=== PATIENT | female | born 1960 | race Caucasian/White ===

== ENCOUNTER 2020-11-18 15:51 | Emergency (ER) | payer OTHER, SELFPAY ==
[2020-11-18 16:07] VITALS: BP 130/60; PULSE 104; RESP 20; TEMP 36.9; O2SAT 98
--- NOTE | 2020-11-18 16:34 | ED.FEMALEGU ---
HPI - Female Genitourinary General Chief complaint: Urogenital-Female Stated complaint: kidney infection Time Seen by Provider: 11/18/20 16:15 Source: patient and RN notes reviewed Mode of arrival: ambulatory Limitations: no limitations History of Present Illness HPI Narrative: 60 year old female presents to [facility] care with one week duration of cloudy urine and 3 day history of burning with urination and left flank pain. Patient states that she has had intermittent low grade fevers for the past day and she also has had some feelings of nausea. Patient states that she has had previous UTI's but it has been several years since she has experienced any bladder infections. She states that she had to have a surgical procedure when she was young woman where she had to have ureters repositioned on the bladder. Patient states that she has increased her oral fluids of water.Patient also states numerous allergies to antibiotics MD elicited complaint: dysuria, pelvic pain and flank pain (left) Pertinent past history: other (previous UTI but not recurrent) Onset (ago): week(s) (1) Location of symptoms: perineum (pressure), suprapubic and flank (left) Severity: moderate Female Urogenital Radiation: L Flank Quality of pain: dull and burning Vaginal discharge: none Vaginal bleeding: none Urinary symptoms: Dysuria, Frequency and Flank Pain (left) Exacerbating factors: urination Relieving factors: none Associated symptoms: abdominal pain (suprapubic) and fever (highest 100.5) Treatment prior to arrival: other (increased oral fluids) Patient : No Possible : postmenopausal Related Data Home Medications Medication Instructions Recorded Confirmed celecoxib 1 mg PO BID 11/18/20 11/18/20 levothyroxine [Synthroid] 1 mcg PO DAILY 11/18/20 11/18/20 Allergies Allergy/AdvReac Type Severity Reaction Status Date / Time Cephalosporins Allergy Mild Diarrhea Verified 11/18/20 16:06 egg Allergy Mild Verified 11/18/20 16:06 levofloxacin Allergy Mild Rash Verified 11/18/20 16:06 Penicillins Allergy Mild Unknown Verified 11/18/20 16:06 Sulfa (Sulfonamide Allergy Mild Rash Verified 11/18/20 16:06 Antibiotics) aspirin AdvReac Mild Nausea Verified 11/18/20 16:06 Review of Systems Review of Systems: Narrative: CONSTITUTIONAL: Reports low grade fever,no chills, or sweats. EYES: Denies visual changes, redness, or discharge. ENT: Denies rhinorrhea, congestion, sore throat, or otalgia. CARDIOVASCULAR: Denies chest pain, palpitations, or edema. RESPIRATORY: Denies cough or dyspnea. GASTROINTESTINAL: suprapubic tenderness and pressure ,positive intermittent nausea,no vomiting, or diarrhea. GENITOURINARY: Positive dysuria or hematuria,pressure with urination and burning SKIN: Denies rash or itching. MUSCULOSKELETAL: Positive for left flank back pain,no joint pain, or myalgia. NEUROLOGIC: Denies headache, numbness, or weakness. PSYCHIATRIC: Denies anxiety or depression. 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 ureters onto bladder Osteoarthritis Osteoporosis Surgical History Surgical History (Updated 11/18/20 @ 16:56 by Regi Rodriguez NP) H/O: hysterectomy Family History Family History (Updated 11/19/20 @ 11:56 by Regi Rodriguez NP) Other No significant family history Social History Social History (Updated 11/19/20 @ 10:17 by Regi Rodriguez NP) Smoking packs per day: 0.5 Smoking cigarettes per day: 10.0 Years smoked: 20 Smoking pack-years: 10.00 Smoking status: Current every day smoker Tobacco type: cigarettes Alcohol intake: current Alcohol use details: social Substance use: never Living arrangements: with family Gender chi
== END 2020-11-18 16:50 | disposition home or self-care (01) ==
PROVIDERS: Emergency Provider Registered Nurse; PCP Family Medicine
DX: N39.0 Urinary tract infection, site not specified (principal); F17.210 Nicotine dependence, cigarettes, uncomplicated; E05.00 Thyrotoxicosis with diffuse goiter without thyrotoxic crisis or storm; E03.9 Hypothyroidism, unspecified; M19.90 Unspecified osteoarthritis, unspecified site; M81.0 Age-related osteoporosis without current pathological fracture
CPT/HCPCS: 81003; 87077; 87086; 87088; 87186; 99213; G0463

== ENCOUNTER 2020-11-28 12:01 | Emergency (ER) | payer OTHER, SELFPAY ==
[2020-11-28 12:12] VITALS: BP 136/52; PULSE 95; RESP 16; TEMP 36.3; O2SAT 100
[2020-11-28 12:35] LABS: Add Urine Microscopic? YES; Appearance Urine Clear (Clear); Bilirubin Urine Negative (Negative); Color Urine Yellow (Yellow); Glucose Urine UA Negative (Negative); Ketones Urine Negative (Negative); Leukocyte Esterase Ur 2+ LEU/UL (Negative); Mucus Urine Rare /lpf; Nitrate Urine Negative (Negative); Protein Urine 1+ mg/dL (Negative); Specific Grav Ur 1.014 (1.001-1.035); Squamous Epithelial Cell Urine Few /hpf (Few); Urobilinogen Urine Negative mg/dL (<2.0)
[2020-11-28 12:38] LABS: Blood Urine Negative (Negative)
--- NOTE | 2020-11-28 13:01 | ED.FEMALEGU ---
HPI - Female Genitourinary General Chief complaint: Urogenital-Female Stated complaint: poss kidney infection Time Seen by Provider: 11/28/20 12:13 History of Present Illness HPI Narrative: Patient is a 60-year-old female who presents the ER with urinary frequency and left flank pain. Patient diagnosed with UTI last week. Has been on Macrobid and finished 3 days ago. Urinary frequency has returned as well as flank pain. She reports fever last night up to 100.2 ?F. She has had some chills. No abdominal pain/nausea/vomiting. Related Data Home Medications Medication Instructions Recorded Confirmed celecoxib 1 mg PO BID 11/18/20 11/28/20 levothyroxine [Synthroid] 1 mcg PO DAILY 11/18/20 11/28/20 Allergies Allergy/AdvReac Type Severity Reaction Status Date / Time Cephalosporins Allergy Mild Diarrhea Verified 11/28/20 12:02 egg Allergy Mild Nausea and Verified 11/28/20 12:02 Vomiting levofloxacin Allergy Mild Rash Verified 11/28/20 12:02 Penicillins Allergy Mild Unknown Verified 11/28/20 12:02 Sulfa (Sulfonamide Allergy Mild Rash Verified 11/28/20 12:02 Antibiotics) aspirin AdvReac Mild Nausea Verified 11/28/20 12:02 Review of Systems Review of Systems: All systems reviewed & are unremarkable except as noted in HPI and below Constitutional: Constitutional: Reports chills Comments: Fever Gastrointestinal: Gastrointestinal: Denies abdominal pain, Denies nausea and Denies vomiting Genitourinary: Genitourinary: Reports nocturia, Denies dysuria and Reports flank pain PMFSH Past Medical History Medical History (Updated 11/28/20 @ 14:22 by Morro Garnett MD) Cheekbone fracture plastic repair Eczema Graves disease Hypothyroidism Osteoarthritis Osteoporosis Surgical History Surgical History (Updated 11/28/20 @ 13:09 by Morro Garnett MD) H/O: hysterectomy 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 HEAD: Normocephalic, atraumatic. CHEST: Clear to auscultation. No respiratory distress. HEART: Regular rate and rhythm. Normal peripheral pulses. ABDOMEN: Soft, nontender, nondistended. Left CVA tenderness. EXTREMITIES: Normal range of motion. No edema. SKIN: Warm, dry, no rash. NEURO: Alert and oriented x3. PSYCH: Normal mood and affect. Course Course Emergency Course: Informed of results. D/c with abx, pain meds, and anti-emetics. Vital Signs Vital signs: Vital Signs Temperature 97.3 F L 11/28/20 12:12 Pulse Rate 95 11/28/20 12:12 Respiratory Rate 16 11/28/20 12:12 Blood Pressure 136/52 L 11/28/20 12:12 Pulse Oximetry 100 11/28/20 12:12 Temperature 97.3 F L 11/28/20 12:12 Pulse Rate 95 11/28/20 12:12 Respiratory Rate 16 11/28/20 12:12 Blood Pressure 136/52 L 11/28/20 12:12 Pulse Oximetry 100 11/28/20 12:12 MDM - Female Genitourinary Lab Data Result diagrams: 11/28/20 13:19 11/28/20 13:19 Labs: Lab Results 11/28/20 11/28/20 11/28/20 Range/Units 12:18 13:19 13:19 WBC 9.4 (4.5-10.0) K/mm3 RBC 4.15 L (4.2-5.4) M/mm3 Hgb 13.5 (12.0-15.0) g/dL Hct 41.3 (37.0-47.0) % MCV 99.5 (80-100) fl MCH 32.5 (26-34) pg MCHC 32.7 (32-36) g/dl RDW 12.3 (11.5-14.5) % Plt Count 321 (150-375) k/mm3 MPV 8.0 (7.4-10.4) fl Immature Gran % (Au
[2020-11-28 13:31] LABS: Basophils Absolute Auto 0.1 K/mm3 (0.0-0.1); Basophils Percent Auto 0.5 % (0.2-1.2); Eosinophils Absolute Auto 0.1 K/mm3 (0-0.3); Eosinophils Percent Auto 0.7 % (0-4.4); Hematocrit 41.3 % (37.0-47.0); Hemoglobin 13.5 g/dL (12.0-15.0); Immature Granulocyte Absolute 0.04 K/mm3 (0.00-0.031); Immature Granulocyte Percent A 0.4 % (0-0.5); Lymphocytes Absolute Auto 1.59 K/mm3 (0.9-3.2); Mean Corpuscular HGB Conc 32.7 g/dl (32-36); Mean Corpuscular Hemoglobin 32.5 pg (26-34); Mean Corpuscular Volume 99.5 fl (80-100); Monocytes Absolute Auto 0.7 K/mm3 (0.1-0.6); Monocytes Percent Auto 7.1 % (2.6-8.5); Neutrophils Percent Auto 74.3 % (45.5-73.1); Platelet Count Result 321 k/mm3 (150-375); Red Blood Count 4.15 M/mm3 (4.2-5.4); Red Cell Distribution Width 12.3 % (11.5-14.5); White Blood Count 9.4 K/mm3 (4.5-10.0)
[2020-11-28 13:43] LABS: Anion Gap 4 mmol/L (8-16); Blood Urea Nitrogen 12 mg/dL (7-17); Calcium 9.6 mg/dL (8.4-10.2); Carbon Dioxide 28 mmol/L (22-30); Chloride 102 mmol/L (98-107); Estimated CRCL calculation 75 ml/min; Estimated Glomerular Filt Rate > 60; Glucose 107 mg/dL (65-105); Sodium 134 mmol/L (137-145)
[2020-11-28 14:36] VITALS: BP 133/50; PULSE 96; RESP 18; O2SAT 99
== END 2020-11-28 14:37 | disposition home or self-care (01) ==
PROVIDERS: Emergency Medicine; Emergency Provider Emergency Medicine; PCP Family Medicine
DX: N39.0 Urinary tract infection, site not specified (principal); E05.00 Thyrotoxicosis with diffuse goiter without thyrotoxic crisis or storm; M19.90 Unspecified osteoarthritis, unspecified site; M81.0 Age-related osteoporosis without current pathological fracture; F17.210 Nicotine dependence, cigarettes, uncomplicated
CPT/HCPCS: 36415; 80048; 81001; 85025; 87086; 99283